=== PATIENT | female | born 1990 | race Caucasian/White ===

== ENCOUNTER 2022-03-25 16:57 | Emergency (ER) | payer SELFPAY ==
[~2022-03-25] VITALS: Ht 152.4 cm; Wt 55.9 kg
[2022-03-25 17:45] VITALS: BP 119/82; TEMP 97.9
[2022-03-25 18:41] VITALS: PULSE 91
[2022-03-25] MEDS ORDERED: PREDNISONE20 MG PO (18:58)
== END 2022-03-25 18:44 | disposition home or self-care (01) ==
LOC: COL.ER 16:57
DX: L23.7 Allergic contact dermatitis due to plants, except food (principal); F17.210 Nicotine dependence, cigarettes, uncomplicated

== ENCOUNTER 2022-10-01 10:07 | Emergency (ER) | payer SELFPAY ==
[~2022-10-01] VITALS: Ht 152.4 cm; Wt 52.3 kg
[~2022-10-01 10:07] MED LIST: PREDNISONE20 MG PO
[2022-10-01 10:12] VITALS: BP 124/93; PULSE 73; TEMP 97.8
== END 2022-10-01 10:49 | disposition home or self-care (01) ==
LOC: COL.ER 10:07
DX: M67.432 Ganglion, left wrist (principal); F17.210 Nicotine dependence, cigarettes, uncomplicated

== ENCOUNTER 2022-11-09 20:20 | Emergency (ER) | payer SELFPAY ==
[~2022-11-09] VITALS: Ht 152.4 cm; Wt 55.9 kg
[2022-11-09 20:50] VITALS: BP 130/90; TEMP 98
[2022-11-09 22:10] VITALS: PULSE 98
== END 2022-11-09 22:10 | disposition home or self-care (01) ==
LOC: COL.ER 20:20
DX: H10.89 Other conjunctivitis (principal)